=== PATIENT | male | born 1935 | race Caucasian/White ===

== ENCOUNTER 2016-06-01 14:00 | Outpatient (CLI) | payer MEDICARE, BC | END 2016-06-01 14:01 | DX: C61 Malignant neoplasm of prostate (principal) ==

== ENCOUNTER 2016-11-24 13:28 | Outpatient (CLI) | payer MEDICARE, BC | END 2016-11-24 13:29 | disposition home or self-care (01) | LOC: LAB.WCP 13:28 | PROVIDERS: ATTEND Urology | DX: C61 Malignant neoplasm of prostate (principal) | CPT/HCPCS: 36415; 84153 ==

== ENCOUNTER 2017-01-10 08:00 | Outpatient (CLI) | payer MEDICARE, BC ==
[2017-01-10 19:35] LABS: ALBUMIN/GLOBULIN RATIO 1.4 (1.0-2.2); BILIRUBIN,TOTAL 0.7 mg/dL (0.2-1.0); CALCIUM 9.1 mg/dL (8.5-10.3); CREATININE 1.3 mg/dL (0.6-1.2); MAGNESIUM 1.9 mg/dL (1.7-2.8); POTASSIUM 4.5 mmol/L (3.5-5.0); TOTAL PROTEIN 6.9 g/dL (6.7-8.2)
== END 2017-01-10 08:01 | disposition home or self-care (01) ==
LOC: LAB.WCP 08:00
PROVIDERS: ATTEND Specialist
DX: I44.0 Atrioventricular block, first degree (principal); I44.1 Atrioventricular block, second degree; I10 Essential (primary) hypertension; E78.5 Hyperlipidemia, unspecified; I34.0 Nonrheumatic mitral (valve) insufficiency
CPT/HCPCS: 36415; 80053; 80061; 81599; 83735

== ENCOUNTER 2017-02-01 13:45 | Outpatient (CLI) | payer MEDICARE, BC ==
[2017-02-03 16:11] LABS: TEST RESULT REPORT
[2017-02-05 12:56] LABS: HDL LARGE 9459 nmol/L (4334-10815); LDL MEDIUM 135 nmol/L (167-465); LDL PARTICLE NUMBER 671 nmol/L (1016-2185); LDL PATTERN A Pattern (A); LDL PEAK SIZE 218.6 Angstrom (> OR = 218.2); LDL SMALL 109 nmol/L (123-441)
== END 2017-02-01 13:46 | disposition home or self-care (01) ==
LOC: LAB.WCP 13:45
PROVIDERS: ATTEND Specialist
DX: I44.0 Atrioventricular block, first degree (principal); I10 Essential (primary) hypertension; E78.5 Hyperlipidemia, unspecified; I34.0 Nonrheumatic mitral (valve) insufficiency
CPT/HCPCS: 36415; 81599; 82465; 82607; 82746; 83704; 83718; 84478

== ENCOUNTER 2018-04-20 10:24 | Emergency (ER) | payer MEDICARE, BC ==
--- NOTE | 2018-04-20 10:57 | ED Physician Documentation ---
PD HPI ABD PAIN - Stated complaint Stated Complaint: ABD/BACK PX - Chief complaint Chief Complaint: Abd Pain - History obtained from History obtained from: Patient - History of Present Illness Timing - onset: How many days ago (4) Timing - duration: Days (4) Timing - details: Gradual onset, Still present Quality: Cramping, Aching, Pain Location: RLQ Radiation: Right flank Worsened by: Eating Associated symptoms: Nausea, Loss of appetite. No: Fever, Vomiting, Diarrhea, Constipation, Melena, Dysuria Similar symptoms before: Has not had sx before Recently seen: Not recently seen Review of Systems Constitutional: reports: Myalgias. denies: Fever, Chills Nose: denies: Rhinorrhea / runny nose, Congestion Throat: denies: Sore throat Cardiac: denies: Chest pain / pressure, Palpitations Respiratory: denies: Dyspnea, Cough GI: reports: Abdominal Pain, Nausea. denies: Vomiting, Constipation, Diarrhea, Bloody / black stool : denies: Dysuria, Frequency Skin: denies: Rash, Lesions Musculoskeletal: reports: Back pain. denies: Neck pain Neurologic: reports: Generalized weakness. denies: Focal weakness, Numbness Endocrine: denies: Weight loss Immunocompromised: denies: Immunocompromised PD PAST MEDICAL HISTORY - Past Medical History Past Medical History: Yes Cardiovascular: Hypertension, High cholesterol Endocrine/Autoimmune: HyPOthyroidism : Other Other Past Medical History: Prostate cancer - Present Medications Home Medications: Ambulatory Orders Medication Instructions Recorded Confirmed Allopurinol 200 mg PO DAILY 06/04/13 04/20/18 Aspirin 325 mg PO DAILY 06/04/13 04/20/18 Levothyroxine [Synthroid] 100 mcg PO DAILY 06/04/13 04/20/18 Lisinopril 20 mg PO DAILY 06/04/13 04/20/18 Omeprazole 20 mg PO DAILY 06/04/13 04/20/18 Simvastatin 20 mg PO DAILY 06/04/13 04/20/18 Vit A,C & E/Lutein/Minerals 1 each PO DAILY 06/04/13 04/20/18 [Ocuvite Tablet] Cephalexin [Keflex] 500 mg PO Q6H #21 capsule 04/20/18 Metronidazole [Flagyl] 500 mg PO BID #14 tablet 04/20/18 Naproxen 500 mg PO BID #20 tablet 04/20/18 - Allergies Allergies/Adverse Reactions: Allergies Allergy/AdvReac Type Severity Reaction Status Date / Time Penicillins Allergy Hives Verified 04/20/18 11:24 - Social History Does the pt smoke?: No Smoking Status: Never smoker Does the pt drink ETOH?: Yes Does the pt have substance abuse?: No - Family History Family history: reports: Non contributory - Immunizations Immunizations are current?: Yes PD ED PE NORMAL - Vitals Vital signs reviewed: Yes - General General: Alert and oriented X 3, Well developed/nourished, Other (seems uncomfortable due to abd pain.) - HEENT HEENT: Moist mucous membranes, Pharynx benign - Neck Neck: Supple, no meningeal sign, No adenopathy - Cardiac Cardiac: RRR, No murmur - Respiratory Respiratory: Clear bilaterally - Abdomen Abdomen: Normal bowel sounds, Soft, Non distended, No organomegaly, Other (tender RLQ and right mid abd with some local guarding but no percussion, rebound nor referred tenderness. ) - Male Male : Deferred - Rectal Rectal: Deferred - Back Back: No CVA TTP - Derm Derm: Normal color, Warm and dry, No rash - Extremities Extremities: No deformity, No tenderness to palpate, Normal ROM s pain, No edema, No calf tenderness / cord - Neuro Neuro: Alert and oriented X 3, No motor deficit, Normal speech Results - Vitals Vitals: Vital Signs - 24 hr 04/20/18 04/20/18 10:37 12:38 Temperature 36.1 C L Heart Rate 69 60 Respiratory 16 14 Rate Blood Pressure 154/73 H 140/84 H O2 Saturation 99 99 Oxygen O2 Source Room air - Labs Labs: Laboratory Tests 04/20/18 04/20/18 04/20/18 11:16 11:16 11:58 WBC 5.8 RBC 3.25 L Hgb 11.6 L Hct 33.6 L MCV 103.3 H MCH 35.6 H MCHC 34.4 RDW 13.9 Plt Count 209 MPV 7.7 Neut # (Auto) 4.5 Lymph # (Auto) 0.7 L Owen # (Auto) 0.6 Eos # (Auto) 0.0 Baso # (Auto) 0.0 Absolute Nucleated RBC 0.00 Nucleated RBC % 0.0 Sodium 139 Potassium 4.4 Chloride 106 Carbon Dioxide 27 Anion Gap 6.0 BUN 30 H Creatinine 1.5 H Estimated GFR (MDRD) 45 L Glucose 117 H Calcium 8.7 Total Bilirubin 0.6 AST 19 ALT 13 Alkaline Phosphatase 47 Total Protein 6.5 L Albumin 3.3 Globulin 3.2 Albumin/Globulin Ratio 1.0 Lipase 33 Urine Color YELLOW Urine Clarity CLEAR Urine pH 7.0 Ur Specific [place] 1.015 Urine Protein NEGATIVE Urine Glucose (UA) NEGATIVE Urine Ketones NEGATIVE Urine Occult Blood NEGATIVE Urine Nitrite NEGATIVE Urine Bilirubin NEGATIVE Urine Urobilinogen 0.2 (NORMAL) Ur Leukocyte Esterase NEGATIVE Ur Microscopic Review NOT INDICATED Urine Culture Comments NOT INDICATED - Rads (name of study) abd/pelvic CT Radiology: Prelim report reviewed (ascending uncomplicated diverticulitis. Appendix partly seen and normal. otherwise no acute process. ), See rad report PD MEDICAL DECISION MAKING - ED course Complexity details: reviewed results (CT showing ascending colon diverticulitis. No abscess nor perforation. Given this finding, and appendix partly seen normal, can treat as divertic. ), re-evaluated patient (feeling improved and did not want pain meds per se. ), considered differential (clinically concerning for diverticulitis, appendicitis or potentially pyelo. Will need CT to better distinguish. ), d/w patient Departure - Departure Disposition: 01 Home, Self Care Clinical Impression: Right lower quadrant abdominal pain, Acute diverticulitis of intestine Condition: Stable Record reviewed to determine appropriate education?: Yes Instructions: ED Diverticulitis Follow-Up: Ugo Garces MD [Primary Care Provider] - Prescriptions: Cephalexin [Keflex] 500 mg PO Q6H #21 capsule Metronidazole [Flagyl] 500 mg PO BID #14 tablet Naproxen 500 mg PO BID #20 tablet Comments: You have diverticulitis on the CT scan which is an infection of the wall of the intestine that is treated with antibiotics. It uncommonly would be surgical so we will treated with antibiotics and anti-inflammatories but return if worsening. Drink lots of fluids. Take a stool softener daily for the next week or so. Antibiotics as directed (metronidazole and cephalexin). Use an anti- inflammatory such as naproxen twice daily. Add Tylenol if needed for pains. Recheck if not improved well over the next 2-3 days. Return sooner if worsening. Discharge Date/Time: 04/20/18 14:37
[2018-04-20] MEDS ORDERED: ONDANSETRON 4 MG/2 ML VIAL IVP STA (11:16)
[2018-04-20] MEDS ORDERED: SODIUM CHLORIDE 0.9% 1,000 ML IV ONE (11:16)
[2018-04-20] MEDS ORDERED: MORPHINE 2 MG/ML CARPUJECT IVP STA (11:16)
[2018-04-20 11:47] LABS: BASOPHILS % (AUTO) 0.7 %; EOSINOPHILS % (AUTO) 0.6 %; HGB - HEMOGLOBIN 11.6 g/dL (14.0-18.0); LYMPHOCYTES # (AUTO) 0.7 10^3/uL (1.5-3.5); LYMPHOCYTES % (AUTO) 11.3 %; MEAN CORPUSCULAR HEMOGLOBIN 35.6 pg (27.0-31.0); MEAN CORPUSCULAR HGB CONC 34.4 g/dL (32.0-36.0); MEAN CORPUSCULAR VOLUME 103.3 fL (80.0-94.0); MEAN PLATELET VOLUME 7.7 fL (7.4-11.4); MONOCYTES # (AUTO) 0.6 10^3/uL (0.0-1.0); MONOCYTES % (AUTO) 10.1 %; NEUTROPHILS # (AUTO) 4.5 10^3/uL (1.5-6.6); NEUTROPHILS % (AUTO) 77.3 %; PLT - PLATELET COUNT 209 10^3/uL (130-450); RED BLOOD COUNT 3.25 10^6/uL (4.70-6.10); RED CELL DISTRIBUTION WIDTH 13.9 % (12.0-15.0); WHITE BLOOD COUNT 5.8 x10^3/uL (4.8-10.8)
[2018-04-20] MEDS ORDERED: IOVERSOL 320 100 ML VIAL IVP ONE ×2 (11:51→12:31)
[2018-04-20 12:01] LABS: ALBUMIN 3.3 g/dL (3.2-5.5); BILIRUBIN,TOTAL 0.6 mg/dL (0.2-1.0); CALCIUM 8.7 mg/dL (8.5-10.3); CREATININE 1.5 mg/dL (0.6-1.2); TOTAL PROTEIN 6.5 g/dL (6.7-8.2)
[2018-04-20 12:31] LABS: BILIRUBIN,URINE NEGATIVE (NEGATIVE); CLARITY,URINE CLEAR (CLEAR); GLUCOSE, URINE (UA) NEGATIVE (NEGATIVE); KETONES,URINE (UA) NEGATIVE (NEGATIVE); LEUKOCYTE ESTERASE, URINE NEGATIVE (NEGATIVE); NITRITE,URINE NEGATIVE (NEGATIVE); OCCULT BLOOD,URINE NEGATIVE (NEGATIVE); PROTEIN,URINE NEGATIVE (NEGATIVE); UROBILINOGEN,URINE 0.2 (NORMAL) E.U./dL (NORMAL)
--- NOTE | 2018-04-20 13:02 | CT Report ---
Reason: RLQ abd pain for 2-3 days Procedure Date: 04/20/2018 Accession Number: [id number] / [id number] Procedure: CT - Abdomen/Pelvis W/ CPT Code: FULL RESULT: EXAM: CT ABDOMEN AND PELVIS EXAM DATE: 04/20/2018 12:25 PM. CLINICAL HISTORY: RLQ abd pain for 2-3 days. COMPARISONS: None. TECHNIQUE: Routine helical CT imaging was performed through the abdomen and pelvis. IV contrast: 80 mL Optiray 320. Enteric contrast: No. Reconstructions: Coronal and sagittal. In accordance with CT protocol optimization, one or more of the following dose reduction techniques were utilized for this exam: automated exposure control, adjustment of mA and/or KV based on patient size, or use of iterative reconstructive technique. FINDINGS: Lung Bases: Unremarkable. Liver: Scattered small discrete hepatic hypodensities measuring up to 13 mm in segment 2 (3/16), nonspecific but possibly cysts. Gallbladder/Bile Ducts: Unremarkable. Spleen: Normal. Pancreas: Normal. Adrenal Glands: Normal. Kidneys: Normal. No masses or hydronephrosis. Peritoneal Cavity/Bowel: No free air or free fluid. Appendix not clearly visualized; no pericecal inflammatory changes are evident. There is focal circumferential wall thickening and pericolonic inflammatory changes at the ascending colon associated with a prominent diverticulum. No organized fluid collection. Pelvic Organs: Prostate brachytherapy seeds. Urinary bladder unremarkable. Vasculature: No aneurysms or other significant abnormality. Scattered atherosclerotic arterial calcification. Bones: Right hip arthroplasty. Multilevel lumbar degeneration. No acute fracture or suspicious bony lesion. 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 Chronic appearing mild superior endplate compression deformity at L3. 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 Other: None. IMPRESSION: 1. Findings suggest acute uncomplicated diverticulitis of the ascending colon. Neoplasia not excluded. 2. Scattered nonspecific small hepatic hypodensities, possibly cysts. 3. Other findings as noted above. [facility]
[2018-04-20] MEDS ORDERED: metroNIDAZOLE 250 MG TABLET PO STA (13:28)
[2018-04-20] MEDS ORDERED: cefTRIAXone 1 GM VIAL IVP STA (13:28)
[2018-04-20 14:38] VITALS: BP 140/84
== END 2018-04-20 14:37 | disposition home or self-care (01) ==
LOC: ED 10:24
DX: K57.32 Diverticulitis of large intestine without perforation or abscess without bleeding (principal); I10 Essential (primary) hypertension; E03.9 Hypothyroidism, unspecified; E78.00 Pure hypercholesterolemia, unspecified; C61 Malignant neoplasm of prostate; Z79.82 Long term (current) use of aspirin
CPT/HCPCS: 36415; 74177; 80053; 81003; 83690; 85025; 96361; 96374; 99283; 99284; A9270; Q9967; 81001; 87086

== ENCOUNTER 2018-12-16 15:03 | Outpatient (CLI) | payer MEDICARE, BC ==
--- NOTE | 2018-12-17 19:13 | XRAY Report ---
Reason: LEFT THUMB PAIN Procedure Date: 12/16/2018 Accession Number: [id number] / [id number] Procedure: WCP - Finger(s) LT CPT Code: FULL RESULT: EXAM: LEFT FIRST DIGIT RADIOGRAPHY EXAM DATE: 12/16/2018 03:03 PM. CLINICAL HISTORY: LEFT THUMB PAIN. COMPARISON: None. TECHNIQUE: 3 views. FINDINGS: Bones: The bones are qualitatively osteopenic; this limits evaluation for underlying fractures or masses. No definite acute fracture is seen with the limitation that the base of the second metacarpal is not well visualized due to the nearby degenerative changes. Joints: There are advanced degenerative changes including partial collapse in the triscaphe region with the trapezium-trapezoid relationship no longer normally defined. Soft Tissues: Normal. No soft tissue swelling. 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 [facility]
== END 2018-12-16 23:59 | disposition home or self-care (01) ==
LOC: DI.WCP 15:03
PROVIDERS: ATTEND Family Medicine
DX: M19.032 Primary osteoarthritis, left wrist (principal); M85.842 Other specified disorders of bone density and structure, left hand
CPT/HCPCS: 73140

== ENCOUNTER 2019-09-07 00:59 | Outpatient (CLI) | payer MEDICARE, BC | END 2019-09-07 01:00 | disposition short-term general hospital (02) | LOC: EMS 00:59 | PROVIDERS: ATTEND Surgery | DX: R07.9 Chest pain, unspecified (principal) | CPT/HCPCS: A0425; A0427 ==